=== PATIENT | female | born 1990 ===

== ENCOUNTER 2021-08-20 15:17 | Inpatient (IN) | payer MEDICAID ==
[~2021-08-20] VITALS: Ht 160 cm; Wt 101.0 kg
[2021-08-20 16:43] LABS: Basophils # (auto) 0 10 ^3/uL (0-0.2); Basophils % (auto) 0.3 % (0.0-2.0); Eosinophils # (auto) 0.2 10 ^3/uL (0-0.8); Eosinophils % (auto) 2.2 % (0.0-7.0); Hematocrit 40.5 % (36.0-46.0); Hemoglobin 13.9 g/dL (12.2-16.2); Lymphocytes # (auto) 0.9 10 ^3/uL (0.4-5.4); Lymphocytes % (auto) 8.7 % (10.0-50.0); Mean Corpuscular Hemoglobin 28.9 pg (28.0-32.0); Mean Corpuscular Hgb Conc. 34.4 g/dL (32.0-36.0); Mean Corpuscular Volume 84.2 fL (80.0-100.0); Monocytes # (auto) 0.8 10 ^3/uL (0-1.3); Monocytes % (auto) 7.8 % (0.0-12.0); Neutrophils # (auto) 8.8 10 ^3/uL (1.6-8.6); Red Blood Cells 4.81 10^6/uL (4.0-5.20); Red Cell Distribution Width 13.7 % (11.8-14.3); White Blood Cell 10.9 10^3/uL (4.4-10.8)
[2021-08-20 17:03] LABS: Albumin 4.2 g/dL (3.4-5.0); Calcium 9.3 mg/dL (8.5-10.1); Potassium 3.5 mmol/L (3.5-5.1)
[2021-08-20 17:06] LABS: BUN/Creatinine Ratio 7.6; Bilirubin, Total 0.3 mg/dL (0.2-1.0); Total Protein 8.9 g/dL (6.4-8.2)
[2021-08-20] MEDS ORDERED: ZINC SULFATE 220mg CAP or TAB PO ONE (17:30)
[2021-08-20] MEDS ORDERED: ASCORBIC ACID 500 MG TAB PO ONE (17:30)
[2021-08-20] MEDS ORDERED: methylPREDNISolone SOD SUCC 125 MG/2 ML VL IV ONE (17:30)
[2021-08-20] MEDS ORDERED: CHOLECALCIFEROL (VITD3) 2,000 UNIT CAP/TAB PO ONE (17:30)
[2021-08-20 17:32] LABS: Urine Bacteria NONE SEEN /hpf (None Seen); Urine Blood Negative /uL (Negative); Urine Specific Gravity 1.012 (1.001-1.035); Urine WBC 2 /hpf (0 - 5)
[2021-08-20] MEDS ORDERED: MORPHINE SULFATE 4 MG/ML SYR/VIAL IV ONE (19:45)
[2021-08-20] MEDS ORDERED: ONDANSETRON HCL 4 MG/2 ML VIAL IV ONE (19:45)
[2021-08-20] MEDS ORDERED: ACETAMINOPHEN 325 MG TAB PO ONE (21:45)
[2021-08-21] MEDS ORDERED: ACETAMINOPHEN 500 MG TAB PO PRN
[2021-08-21] MEDS ORDERED: ONDANSETRON HCL 4 MG/2 ML VIAL IV PRN
[2021-08-21] MEDS ORDERED: DOCUSATE SOD 100 MG CAP PO PRN
[2021-08-21] MEDS ORDERED: ALBUTEROL SULF HFA 90MCG INH 200DOSE IN PRN
[2021-08-21] MEDS ORDERED: NITROGLYCERIN 0.4 MG SL TAB SL PRN
[2021-08-21] MEDS ORDERED: IOHEXOL 350 MG/ML 100ML IJ ONE (00:09)
[2021-08-21 05:01] LABS: Basophils # (auto) 0 10 ^3/uL (0-0.2); Basophils % (auto) 0.4 % (0.0-2.0); Eosinophils # (auto) 0.3 10 ^3/uL (0-0.8); Eosinophils % (auto) 3.5 % (0.0-7.0); Hematocrit 38.3 % (36.0-46.0); Hemoglobin 13.1 g/dL (12.2-16.2); Lymphocytes # (auto) 1.4 10 ^3/uL (0.4-5.4); Lymphocytes % (auto) 15.1 % (10.0-50.0); Mean Corpuscular Hemoglobin 28.8 pg (28.0-32.0); Mean Corpuscular Hgb Conc. 34.1 g/dL (32.0-36.0); Mean Corpuscular Volume 84.3 fL (80.0-100.0); Monocytes % (auto) 10.9 % (0.0-12.0); Neutrophils # (auto) 6.6 10 ^3/uL (1.6-8.6); Neutrophils % (auto) 70.1 % (37.0-80.0); Nucleated Red Blood Cells % 0.1 %; Red Blood Cells 4.55 10^6/uL (4.0-5.20); Red Cell Distribution Width 13.9 % (11.8-14.3); White Blood Cell 9.4 10^3/uL (4.4-10.8)
[2021-08-21 05:33] LABS: Calcium 9.2 mg/dL (8.5-10.1); Magnesium 2.9 mg/dL (1.6-2.6); Potassium 3.8 mmol/L (3.5-5.1)
[2021-08-21 05:36] LABS: BUN/Creatinine Ratio 7.9; Bilirubin, Total 0.5 mg/dL (0.2-1.0); Total Protein 8.3 g/dL (6.4-8.2)
[2021-08-21 05:50] VITALS: BP 110/64
[2021-08-21] MEDS: SODIUM CHLORIDE 0.9% 1,000 ML IV SCH ×2 (06:38→10:10)
[2021-08-21] MEDS ORDERED: ALBU108A5 IN (06:58)
[2021-08-21 08:00] VITALS: BP 136/84
[2021-08-21] MEDS ORDERED: FAMOTIDINE (10MG/ML) 2ML VL IV SCH (10:00)
[2021-08-21] MEDS ORDERED: BUDESONIDE (INHALATION) 180 MCG IH IN SCH (10:00)
[2021-08-21] MEDS: ENOXAPARIN SOD 40 MG/0.4 ML SYRINGE SC SCH ×2 (10:00→21:20)
[2021-08-21] MEDS: CHOLECALCIFEROL (VITD3) 2,000 UNIT CAP/TAB PO SCH (10:00)
[2021-08-21] MEDS: ASCORBIC ACID 1,000 MG TAB PO SCH (10:00)
[2021-08-21] MEDS: MULTIPLE VITAMIN TAB PO SCH (10:00)
[2021-08-21] MEDS: ZINC SULFATE 220mg CAP or TAB PO SCH (10:00)
[2021-08-21] MEDS ORDERED: DOXYCYCLINE 100MG/250ML 250 ML IV SCH (10:00)
[2021-08-21] MEDS ORDERED: DexAMETHasone SOD PHOS 10MG/1ML VIAL INJ IV SCH (10:00)
[2021-08-21] MEDS ORDERED: ALBUTEROL SULF 2.5 MG/0.5ML(0.5%) NEB SOLN NEB ONE (11:45)
[2021-08-21] MEDS ORDERED: PANTOPRAZOLE 40 MG/10 ML VIAL INJ IV ONE (11:45)
[2021-08-21] MEDS ORDERED: cefTRIAXone 1GM/50ML D5W 50 ML IV ONE (11:45)
[2021-08-21] MEDS ORDERED: IPRATROPIUM BROM 0.5 MG/2.5ML INH SOL NEB ONE (11:45)
[2021-08-21] MEDS ORDERED: BUDESONIDE (INHALATION) 0.5 MG/2 ML NEB NEB ONE (11:45)
[2021-08-21 12:45] VITALS: BP 124/72
[2021-08-21] MEDS ORDERED: AZITHROMYCIN 500MG/ 250ML 250 ML IV ONE (12:45)
[2021-08-21] MEDS: ALBUTEROL SULF 2.5 MG/0.5ML(0.5%) NEB SOLN NEB SCH ×2 (13:31→18:35)
[2021-08-21] MEDS: IPRATROPIUM BROM 0.5 MG/2.5ML INH SOL NEB SCH ×2 (13:31→18:35)
[2021-08-21] MEDS: methylPREDNISolone SOD SUCC 40 MG/ML VL IV SCH ×2 (14:00→21:21)
[2021-08-21] MEDS ORDERED: IPRATROPIUM BROM 0.5 MG/2.5ML INH SOL NEB SCH (14:00)
[2021-08-21] MEDS ORDERED: ALBUTEROL SULF 2.5 MG/0.5ML(0.5%) NEB SOLN NEB SCH (14:00)
[2021-08-21] MEDS: BUDESONIDE (INHALATION) 0.5 MG/2 ML NEB NEB SCH (18:35)
[2021-08-21] MEDS: MONTELUKAST SODIUM 10 MG TAB PO SCH (21:20)
[2021-08-21] MEDS: ATORVASTATIN 20 MG TAB PO SCH (21:20)
[2021-08-21 21:51] VITALS: BP 144/77
[2021-08-21] MEDS: PROMETHAZINE W/CODEINE 5 ML ORAL SYRUP PO PRN (21:51)
[2021-08-22 05:08] VITALS: BP 102/76
[2021-08-22] MEDS: ALBUTEROL SULF 2.5 MG/0.5ML(0.5%) NEB SOLN NEB SCH ×3 (06:03→18:21)
[2021-08-22] MEDS: BUDESONIDE (INHALATION) 0.5 MG/2 ML NEB NEB SCH ×2 (06:03→18:22)
[2021-08-22] MEDS: IPRATROPIUM BROM 0.5 MG/2.5ML INH SOL NEB SCH ×3 (06:03→18:21)
[2021-08-22] MEDS: methylPREDNISolone SOD SUCC 40 MG/ML VL IV SCH ×3 (06:38→21:45)
[2021-08-22 06:45] LABS: Basophils # (auto) 0 10 ^3/uL (0-0.2); Basophils % (auto) 0.3 % (0.0-2.0); Eosinophils # (auto) 0 10 ^3/uL (0-0.8); Eosinophils % (auto) 0.1 % (0.0-7.0); Hematocrit 39.6 % (36.0-46.0); Hemoglobin 13.2 g/dL (12.2-16.2); Lymphocytes # (auto) 1.3 10 ^3/uL (0.4-5.4); Lymphocytes % (auto) 11.1 % (10.0-50.0); Mean Corpuscular Hemoglobin 28.1 pg (28.0-32.0); Mean Corpuscular Hgb Conc. 33.2 g/dL (32.0-36.0); Mean Corpuscular Volume 84.5 fL (80.0-100.0); Monocytes # (auto) 0.7 10 ^3/uL (0-1.3); Neutrophils # (auto) 9.6 10 ^3/uL (1.6-8.6); Neutrophils % (auto) 82.5 % (37.0-80.0); Nucleated Red Blood Cells % 0.2 %; Red Blood Cells 4.69 10^6/uL (4.0-5.20); Red Cell Distribution Width 13.9 % (11.8-14.3); White Blood Cell 11.6 10^3/uL (4.4-10.8)
[2021-08-22 06:49] LABS: Potassium 3.9 mmol/L (3.5-5.1)
[2021-08-22 06:55] LABS: INR 1.06 (0.9-1.15); Partial Thromboplastin Time 27.9 sec (23.6-33.0)
[2021-08-22 06:58] LABS: Albumin 3.7 g/dL (3.4-5.0); BUN/Creatinine Ratio 11.7; Bilirubin, Total 0.3 mg/dL (0.2-1.0); Calcium 9.1 mg/dL (8.5-10.1); Magnesium 3.2 mg/dL (1.6-2.6); Phosphorus 4.2 mg/dL (2.5-4.90); Total Protein 8.4 g/dL (6.4-8.2); Uric Acid 4.1 mg/dL (2.6-6.0)
[2021-08-22 08:00] VITALS: BP 124/73
[2021-08-22 08:31] VITALS: BP 124/73
[2021-08-22] MEDS: MULTIPLE VITAMIN TAB PO SCH (08:32)
[2021-08-22] MEDS: PANTOPRAZOLE 40 MG/10 ML VIAL INJ IV SCH (08:32)
[2021-08-22] MEDS: ASPirin 81 mg TAB PO SCH (08:32)
[2021-08-22] MEDS: cefTRIAXone 1GM/50ML D5W 50 ML IV SCH (08:32)
[2021-08-22] MEDS: ZINC SULFATE 220mg CAP or TAB PO SCH (08:32)
[2021-08-22] MEDS: CHOLECALCIFEROL (VITD3) 2,000 UNIT CAP/TAB PO SCH (08:33)
[2021-08-22] MEDS: ENOXAPARIN SOD 40 MG/0.4 ML SYRINGE SC SCH ×2 (08:33→22:08)
[2021-08-22] MEDS: ASCORBIC ACID 1,000 MG TAB PO SCH (08:33)
[2021-08-22] MEDS: PROMETHAZINE W/CODEINE 5 ML ORAL SYRUP PO PRN ×2 (08:34→21:44)
[2021-08-22] MEDS: SODIUM CHLORIDE 0.9% 1,000 ML IV SCH ×5 (09:20→19:17)
[2021-08-22] MEDS: AZITHROMYCIN 500MG/ 250ML 250 ML IV SCH (10:30)
[2021-08-22 13:00] VITALS: BP 115/70
[2021-08-22] MEDS: HYDROcodone-ACET 5/325MG TAB PO PRN ×2 (13:35→21:44)
[2021-08-22 17:00] VITALS: BP 130/67
[2021-08-22] MEDS: MONTELUKAST SODIUM 10 MG TAB PO SCH (21:44)
[2021-08-22] MEDS: ATORVASTATIN 20 MG TAB PO SCH (21:45)
[2021-08-22 22:00] VITALS: BP 128/73
[2021-08-23 05:00] VITALS: BP 132/67
[2021-08-23] MEDS: methylPREDNISolone SOD SUCC 40 MG/ML VL IV SCH ×3 (05:51→21:16)
[2021-08-23] MEDS: ALBUTEROL SULF 2.5 MG/0.5ML(0.5%) NEB SOLN NEB SCH ×3 (07:32→19:16)
[2021-08-23] MEDS: BUDESONIDE (INHALATION) 0.5 MG/2 ML NEB NEB SCH ×2 (07:34→19:16)
[2021-08-23 08:00] VITALS: BP 117/74
[2021-08-23] MEDS: PANTOPRAZOLE 40 MG/10 ML VIAL INJ IV SCH (08:24)
[2021-08-23] MEDS: cefTRIAXone 1GM/50ML D5W 50 ML IV SCH (08:24)
[2021-08-23] MEDS: ENOXAPARIN SOD 40 MG/0.4 ML SYRINGE SC SCH ×2 (08:25→21:16)
[2021-08-23] MEDS: ASCORBIC ACID 1,000 MG TAB PO SCH (08:25)
[2021-08-23] MEDS: MULTIPLE VITAMIN TAB PO SCH (08:25)
[2021-08-23] MEDS: ZINC SULFATE 220mg CAP or TAB PO SCH (08:25)
[2021-08-23] MEDS: CHOLECALCIFEROL (VITD3) 2,000 UNIT CAP/TAB PO SCH (08:25)
[2021-08-23] MEDS: ASPirin 81 mg TAB PO SCH (08:25)
[2021-08-23] MEDS: HYDROcodone-ACET 5/325MG TAB PO PRN ×2 (08:49→17:15)
[2021-08-23] MEDS: PROMETHAZINE W/CODEINE 5 ML ORAL SYRUP PO PRN ×2 (08:50→21:16)
[2021-08-23 09:38] VITALS: BP 139/91
[2021-08-23] MEDS: AZITHROMYCIN 500MG/ 250ML 250 ML IV SCH (10:00)
[2021-08-23 12:29] VITALS: BP 150/87
[2021-08-23] MEDS: IPRATROPIUM BROM 0.5 MG/2.5ML INH SOL NEB SCH ×2 (12:29→19:16)
[2021-08-23 16:18] VITALS: BP 127/76
[2021-08-23] MEDS: SODIUM CHLORIDE 0.9% 1,000 ML IV SCH (21:15)
[2021-08-23] MEDS: ATORVASTATIN 20 MG TAB PO SCH (21:16)
[2021-08-23] MEDS: MONTELUKAST SODIUM 10 MG TAB PO SCH (21:16)
[2021-08-23 22:00] VITALS: BP 133/84
[2021-08-24] MEDS: HYDROcodone-ACET 5/325MG TAB PO PRN ×2 (01:52→21:46)
[2021-08-24 05:00] VITALS: BP 137/88
[2021-08-24] MEDS: methylPREDNISolone SOD SUCC 40 MG/ML VL IV SCH ×3 (06:19→21:46)
[2021-08-24] MEDS: IPRATROPIUM BROM 0.5 MG/2.5ML INH SOL NEB SCH ×3 (06:23→18:25)
[2021-08-24] MEDS: BUDESONIDE (INHALATION) 0.5 MG/2 ML NEB NEB SCH ×2 (06:23→18:30)
[2021-08-24] MEDS: ALBUTEROL SULF 2.5 MG/0.5ML(0.5%) NEB SOLN NEB SCH ×4 (06:23→18:25)
[2021-08-24 06:53] LABS: Basophils # (auto) 0 10 ^3/uL (0-0.2); Basophils % (auto) 0.1 % (0.0-2.0); Eosinophils # (auto) 0 10 ^3/uL (0-0.8); Hematocrit 36.7 % (36.0-46.0); Hemoglobin 12.2 g/dL (12.2-16.2); Lymphocytes # (auto) 1.5 10 ^3/uL (0.4-5.4); Lymphocytes % (auto) 15.8 % (10.0-50.0); Mean Corpuscular Hemoglobin 28.2 pg (28.0-32.0); Mean Corpuscular Hgb Conc. 33.3 g/dL (32.0-36.0); Mean Corpuscular Volume 84.6 fL (80.0-100.0); Monocytes # (auto) 0.8 10 ^3/uL (0-1.3); Neutrophils # (auto) 7.4 10 ^3/uL (1.6-8.6); Neutrophils % (auto) 76.1 % (37.0-80.0); Nucleated Red Blood Cells % 0.1 %; Red Blood Cells 4.33 10^6/uL (4.0-5.20); Red Cell Distribution Width 13.8 % (11.8-14.3); White Blood Cell 9.7 10^3/uL (4.4-10.8)
[2021-08-24 07:00] LABS: Albumin 3.2 g/dL (3.4-5.0); BUN/Creatinine Ratio 15.8; Potassium 4.3 mmol/L (3.5-5.1)
[2021-08-24 07:02] LABS: Bilirubin, Total 0.1 mg/dL (0.2-1.0)
[2021-08-24 08:00] VITALS: BP 130/82
[2021-08-24] MEDS: MORPHINE SULFATE INJECTION 2 MG/ML SYRG IV PRN ×2 (08:13→10:34)
[2021-08-24] MEDS: ASCORBIC ACID 1,000 MG TAB PO SCH (08:46)
[2021-08-24] MEDS: PANTOPRAZOLE 40 MG/10 ML VIAL INJ IV SCH (08:46)
[2021-08-24] MEDS: cefTRIAXone 1GM/50ML D5W 50 ML IV SCH (08:46)
[2021-08-24] MEDS: ZINC SULFATE 220mg CAP or TAB PO SCH (08:46)
[2021-08-24] MEDS: ASPirin 81 mg TAB PO SCH (08:46)
[2021-08-24] MEDS: MULTIPLE VITAMIN TAB PO SCH (08:46)
[2021-08-24] MEDS: CHOLECALCIFEROL (VITD3) 2,000 UNIT CAP/TAB PO SCH (08:47)
[2021-08-24] MEDS: ENOXAPARIN SOD 40 MG/0.4 ML SYRINGE SC SCH ×2 (08:47→21:46)
[2021-08-24 09:02] VITALS: BP 134/83
[2021-08-24] MEDS ORDERED: PROMETHAZINE HCL 25 MG/ML 1ML IV PRN (09:45)
[2021-08-24] MEDS: AZITHROMYCIN 500MG/ 250ML 250 ML IV SCH (10:09)
[2021-08-24 13:00] VITALS: BP 130/82
[2021-08-24 16:45] VITALS: BP 129/75
[2021-08-24] MEDS: SODIUM CHLORIDE 0.9% 1,000 ML IV SCH (17:32)
[2021-08-24] MEDS: MONTELUKAST SODIUM 10 MG TAB PO SCH (21:45)
[2021-08-24] MEDS: ATORVASTATIN 20 MG TAB PO SCH (21:45)
[2021-08-24 22:00] VITALS: BP 143/97
[2021-08-25 05:00] VITALS: BP 135/75
[2021-08-25] MEDS: methylPREDNISolone SOD SUCC 40 MG/ML VL IV SCH ×2 (06:35→14:00)
[2021-08-25] MEDS: SODIUM CHLORIDE 0.9% 1,000 ML IV SCH (06:40)
[2021-08-25] MEDS: ALBUTEROL SULF 2.5 MG/0.5ML(0.5%) NEB SOLN NEB SCH ×2 (07:23→13:07)
[2021-08-25] MEDS: IPRATROPIUM BROM 0.5 MG/2.5ML INH SOL NEB SCH ×2 (07:23→13:07)
[2021-08-25] MEDS: BUDESONIDE (INHALATION) 0.5 MG/2 ML NEB NEB SCH (07:23)
[2021-08-25 08:00] VITALS: BP 149/87
[2021-08-25] MEDS: ZINC SULFATE 220mg CAP or TAB PO SCH (08:39)
[2021-08-25] MEDS: cefTRIAXone 1GM/50ML D5W 50 ML IV SCH (08:39)
[2021-08-25] MEDS: PANTOPRAZOLE 40 MG/10 ML VIAL INJ IV SCH (08:39)
[2021-08-25] MEDS: ASPirin 81 mg TAB PO SCH (08:39)
[2021-08-25] MEDS: CHOLECALCIFEROL (VITD3) 2,000 UNIT CAP/TAB PO SCH (08:40)
[2021-08-25] MEDS: MULTIPLE VITAMIN TAB PO SCH (08:40)
[2021-08-25] MEDS: ASCORBIC ACID 1,000 MG TAB PO SCH (08:40)
[2021-08-25] MEDS: ENOXAPARIN SOD 40 MG/0.4 ML SYRINGE SC SCH (08:41)
[2021-08-25 09:06] VITALS: BP 149/87
[2021-08-25] MEDS: HYDROcodone-ACET 5/325MG TAB PO PRN (09:16)
[2021-08-25] MEDS ORDERED: ALBUAER3 IN (10:08)
[2021-08-25] MEDS ORDERED: AZIT500T66 PO (10:08)
[2021-08-25] MEDS: AZITHROMYCIN 500MG/ 250ML 250 ML IV SCH (10:18)
[2021-08-25 12:08] VITALS: BP 134/94
[2021-08-25] MEDS ORDERED: NOREPINEPHRINE 8 MG/250ML KIT 250 ML IV ONE (13:41)
== END 2021-08-25 14:21 | disposition home or self-care (01) | DRG 139 ==
LOC: ER 15:17 → EDBD 15:17 → OVERFLOW 23:56 → CENTRAL 08-21 05:09 → TELE-CENTR 08-21 05:49
PROVIDERS: ADMIT Nurse Practitioner Family; ATTEND Family Medicine
DX: J18.9 Pneumonia, unspecified organism (principal); J96.01 Acute respiratory failure with hypoxia; J45.901 Unspecified asthma with (acute) exacerbation; K21.9 Gastro-esophageal reflux disease without esophagitis; D72.829 Elevated white blood cell count, unspecified; E66.01 Morbid (severe) obesity due to excess calories; Z20.822 Contact with and (suspected) exposure to COVID-19; J98.11 Atelectasis; E78.5 Hyperlipidemia, unspecified; I88.9 Nonspecific lymphadenitis, unspecified; Z68.30 Body mass index [BMI] 30.0-30.9, adult; Z83.3 Family history of diabetes mellitus
CPT/HCPCS: 36415; 36600; 71045; 71275; 80053; 81001; 82306; 82728; 82785; 82805; 83605; 83615; 83735; 83880; 84100; 84443; 84484; 84550; 85025; 85379; 85610; 85730; 86141; 87040; 87426; 94640; 96365; 96375; C9113; G0378; J0696; J1100; J3490